=== PATIENT | female | born 2000 | race Two or more races ===

== ENCOUNTER 2022-11-18 10:06 | Emergency (ER) | payer OTHER ==
[~2022-11-18] VITALS: Ht 170.2 cm; Wt 70.0 kg
[2022-11-18 10:40] VITALS: BP 145/78
== END 2022-11-18 11:30 ==
LOC: EMS 10:10
DX: F12.90 Cannabis use, unspecified, uncomplicated (principal)
CPT/HCPCS: 99283; Z7502